=== PATIENT | female | born 1975 | race Asian ===

== ENCOUNTER 2024-08-02 08:04 | Day surgery (SDC) | payer OTHER ==
[~2024-08-02] VITALS: Ht 164.8 cm; Wt 94.0 kg
[~2024-08-02 08:04] MED LIST: ATOR10TA PO; LOSA-381 PO; SEMA0.258 SQ; SODIUM CHLORIDE 0.9% 1,000 ML ONE
[2024-08-02] MEDS: SODIUM CHLORIDE 0.9% 1,000 ML IV ONE (08:47)
[2024-08-02 09:26] LABS: GLUCOMETER DEV NAME(LOC) SDS.; GLUCOSE,POINT OF CARE 99 MG/DL (70-110)
[2024-08-02] MEDS ORDERED: LIDOCAINE/PF 2% 5 ML SYRINGE IVP ONE (18:00)
[2024-08-02] MEDS ORDERED: PROPOFOL 1% 20 ML VIAL IVP ONE (18:00)
== END 2024-08-02 11:10 | disposition home or self-care (01) ==
LOC: SURGERY 08:04
PROVIDERS: ATTEND Internal Medicine Gastroenterology
DX: Z12.11 Encounter for screening for malignant neoplasm of colon (principal); I10 Essential (primary) hypertension; E11.9 Type 2 diabetes mellitus without complications; Z98.890 Other specified postprocedural states; Z79.899 Other long term (current) drug therapy
CPT/HCPCS: 45378; 82962; 84703; J7030; J2704; J3490